=== PATIENT | female | born 1995 | race Caucasian/White ===

== ENCOUNTER 2016-11-04 16:45 | Emergency (ER) | payer OTHER ==
[~2016-11-04] VITALS: Ht 160 cm; Wt 59.0 kg
[~2016-11-04 16:45] MED LIST: BACTRIM DS 8001 TA1 PO; BACTROBAN CREAM15 GM T; CHILDREN'S CLARI5 MG PO; CIPRO250 MG PO; CLINDAMYCIN150 MG PO; DOXYCYCLINE MO100 MG PO; EPIPEN 2-PAK1 MG/ML IJ; FLONASE ALLERG9.9 ML NAS; HYDROCODONE BIT1 T11 PO; MEDROL DOSEPAK4 MG PO; MOTRIN400 MG PO; MOTRIN800 MG PO; MULTIPLE VITAMI1 T22 PO; NITROFURANTOIN100 MG PO; NKHM; OVRAL-21 50 MCG1 TAB PO; PREDNISONE10 MG PO; RECLIPSEN PO; SEPTRA DS 800 M1 TAB PO; TYLENOL W/CODEI1 TA2 PO; ULTRAM50 MG PO; VENTOLIN H0.09 MG/AC INH; ZYRTEC10 MG PO
[2016-11-04 17:11] VITALS: BP 132/90
[2016-11-04] MEDS ORDERED: AMOXICILLIN500 M2 PO (17:12)
[2016-11-04] MEDS ORDERED: IBU800 MG PO (17:12)
[2016-11-04] MEDS ORDERED: LIDOCAINE HCL100 M1 MM (17:17)
[2016-11-04] MEDS ORDERED: Peridex 473 ML473 ML PO (17:17)
[2016-12-03] MEDS ORDERED: CITALOPRAM HYDR10 MG PO (21:48)
[2016-12-03] MEDS ORDERED: ABREVA2 GM TP (22:03)
== END 2016-11-04 17:38 | disposition home or self-care (01) ==
LOC: ED 16:45
DX: K08.89 Other specified disorders of teeth and supporting structures (principal); R03.0 Elevated blood-pressure reading, without diagnosis of hypertension; F17.200 Nicotine dependence, unspecified, uncomplicated; Z88.2 Allergy status to sulfonamides

== ENCOUNTER 2017-02-13 19:50 | Emergency (ER) | payer OTHER ==
[~2017-02-13] VITALS: Ht 157.4 cm; Wt 59.0 kg
[~2017-02-13 19:50] MED LIST changes: +ABREVA2 GM TP; +AMOXICILLIN500 M2 PO; +CITALOPRAM HYDR10 MG PO; +IBU800 MG PO; +LIDOCAINE HCL100 M1 MM; +Peridex 473 ML473 ML PO
[2017-02-13 20:07] VITALS: BP 114/62
[2017-02-13] MEDS ORDERED: NAPROSYN500 MG PO (20:13)
== END 2017-02-13 20:16 | disposition home or self-care (01) ==
LOC: ED 19:50
DX: G56.01 Carpal tunnel syndrome, right upper limb (principal); F17.200 Nicotine dependence, unspecified, uncomplicated; Z79.899 Other long term (current) drug therapy; Z88.2 Allergy status to sulfonamides

== ENCOUNTER 2017-05-08 16:48 | Emergency (ER) | payer OTHER ==
[~2017-05-08] VITALS: Ht 160 cm; Wt 58.1 kg
[~2017-05-08 16:48] MED LIST changes: +NAPROSYN500 MG PO
[2017-05-08 16:57] VITALS: BP 131/68
[2017-05-08 17:37] LABS: BILIRUBIN NEGATIVE (NEGATIVE); BLOOD 3+ (NEGATIVE); CLARITY SL CLOUDY (CLEAR); COLOR YELLOW (YELLOW); GLUCOSE NEGATIVE (NEGATIVE); KETONE NEGATIVE (NEGATIVE); LEUKO ESTERASE NEGATIVE (NEGATIVE); NITRITE NEGATIVE (NEGATIVE); PROTEIN NEGATIVE (NEGATIVE); SPECIFIC GRAVITY >= 1.030 (1.005-1.030)
[2017-05-08 17:44] LABS: BASO # 0.1 10*3/uL (0.0-0.1); BASO % 0.5 % (0.0-1.0); EOS # 0.2 10*3/uL (0.0-0.4); EOS % 2.1 % (1.0-4.0); HEMATOCRIT 43.5 % (37.0-47.0); HEMOGLOBIN 14.1 g/dl (12.0-16.0); LYMPH # 2.4 10*3/uL (1.3-4.4); LYMPH % 24.2 % (27.0-41.0); MEAN CELL VOLUME 95.8 fl (81.0-99.0); MEAN CORPUSCULAR HGB 31.1 pg (27.0-31.0); MEAN CORPUSCULAR HGB CONC 32.4 g/dl (33.0-37.0); MEAN PLATELET VOLUME 10.9 fl (9.6-12.3); MONO # 0.7 10*3/uL (0.1-1.0); MONO % 7.1 % (3.0-9.0); NEUT # 6.5 10*3/uL (2.3-7.9); NEUT % 65.7 % (47.0-73.0); PLATELET COUNT AUTOMATED 258 10*3/uL (130-400); RED BLOOD COUNT 4.54 10*6/uL (4.10-5.10); RED CELL DISTRI WIDTH 12.7 % (0-14.5); WHITE BLOOD COUNT 9.9 10*3/uL (4.8-10.8)
[2017-05-08 17:46] LABS: BACTERIA 1+
[2017-05-08 17:47] LABS: EPITHELIAL CELLS 21-30; URINE REFLEX COMMENT YES (NO)
[2017-05-08 18:00] LABS: ALBUMIN 3.8 gm/dl (3.1-4.5); ALKALINE PHOSPHATASE 80 U/L (45-117); BILIRUBIN, TOTAL 0.3 mg/dl (0.2-1.0); BUN 12 mg/dl (7-24); CARBON DIOXIDE 27 mmol/L (21-32); CHLORIDE 105 mmol/L (98-107); EST GLOM FILT AFRICAN AMERICAN > 60 ml/min; GLUCOSE 82 mg/dL (65-99); MAGNESIUM 2.1 mg/dL (1.5-2.1); POTASSIUM 3.9 mmol/L (3.5-5.1); SGOT/AST 23 IU/L (3-35); SGPT/ALT 22 U/L (12-78); SODIUM 140 mmol/L (136-145)
[2017-05-08 18:02] LABS: C-REACTIVE PROTEIN < 0.29 MG/DL (0-0.3)
[2017-05-08] MEDS ORDERED: PEPCID20 MG PO (18:41)
== END 2017-05-08 18:42 | disposition home or self-care (01) ==
LOC: ED 16:48
PROVIDERS: Emergency Medicine
DX: K29.00 Acute gastritis without bleeding (principal); F17.200 Nicotine dependence, unspecified, uncomplicated; Z88.2 Allergy status to sulfonamides; Z88.8 Allergy status to other drugs, medicaments and biological substances

== ENCOUNTER 2017-06-13 10:52 | Emergency (ER) | payer OTHER ==
[~2017-06-13] VITALS: Ht 160 cm; Wt 56.7 kg
[~2017-06-13 10:52] MED LIST changes: +PEPCID20 MG PO
[2017-06-13 11:05] VITALS: BP 146/88
[2017-06-13] MEDS ORDERED: CLINDAMYCIN HC300 MG PO (11:29)
[2017-06-13] MEDS ORDERED: Peridex 473 ML473 ML PO (11:29)
[2017-06-13] MEDS ORDERED: Motrin,Rufen800 MG PO (11:29)
== END 2017-06-13 11:35 | disposition home or self-care (01) ==
LOC: ED 10:52
DX: K08.89 Other specified disorders of teeth and supporting structures (principal); F17.200 Nicotine dependence, unspecified, uncomplicated; Z88.2 Allergy status to sulfonamides; Z79.899 Other long term (current) drug therapy

== ENCOUNTER 2018-01-29 09:37 | Emergency (ER) | payer OTHER ==
[~2018-01-29] VITALS: Ht 160 cm; Wt 65.8 kg
[2018-01-29 09:37] VITALS: BP 114/76
[~2018-01-29 09:37] MED LIST changes: +CLINDAMYCIN HC300 MG PO; +Motrin,Rufen800 MG PO
== END 2018-01-29 09:59 | disposition home or self-care (01) ==
LOC: ED 09:37
DX: M54.2 Cervicalgia (principal); M25.512 Pain in left shoulder; F17.200 Nicotine dependence, unspecified, uncomplicated; Z79.899 Other long term (current) drug therapy; Z88.2 Allergy status to sulfonamides; V49.88XA Car occupant (driver) (passenger) injured in other specified transport accidents, initial encounter; Y93.89 Activity, other specified; Y92.413 State road as the place of occurrence of the external cause; Y99.9 Unspecified external cause status

== ENCOUNTER 2018-06-25 12:34 | Emergency (ER) | payer SELFPAY ==
[~2018-06-25] VITALS: Ht 160 cm; Wt 64.9 kg
[2018-06-25 12:35] VITALS: BP 117/75
== END 2018-06-25 14:47 | disposition home or self-care (01) ==
LOC: ED 12:34
DX: S93.491A Sprain of other ligament of right ankle, initial encounter (principal); E16.2 Hypoglycemia, unspecified; Z88.2 Allergy status to sulfonamides; Z88.8 Allergy status to other drugs, medicaments and biological substances; W10.8XXA Fall (on) (from) other stairs and steps, initial encounter; Y93.01 Activity, walking, marching and hiking; Y92.89 Other specified places as the place of occurrence of the external cause; Y99.8 Other external cause status

== ENCOUNTER 2018-07-06 07:21 | Emergency (ER) | payer SELFPAY ==
[~2018-07-06] VITALS: Ht 160 cm; Wt 63.5 kg
[2018-07-06 07:22] VITALS: BP 128/68
[2018-07-06 07:46] LABS: HEMATOCRIT 43.9 % (37.0-47.0); HEMOGLOBIN 14.6 g/dl (12.0-16.0); MEAN CORPUSCULAR HGB 31.6 pg (27.0-31.0); MEAN CORPUSCULAR HGB CONC 33.3 g/dl (33.0-37.0); PLATELET COUNT AUTOMATED 185 10*3/uL (130-400); RED BLOOD COUNT 4.62 10*6/uL (4.10-5.10); RED CELL DISTRI WIDTH 12.6 % (0-14.5); WHITE BLOOD COUNT 19.6 10*3/uL (4.8-10.8)
[2018-07-06 07:51] LABS: BILIRUBIN 1+ (NEGATIVE); BLOOD 3+ (NEGATIVE); CLARITY SL CLOUDY (CLEAR); COLOR YELLOW (YELLOW); GLUCOSE NEGATIVE (NEGATIVE); KETONE NEGATIVE (NEGATIVE); LEUKO ESTERASE NEGATIVE (NEGATIVE); NITRITE NEGATIVE (NEGATIVE); PH 7.5 (5.0-9.0)
[2018-07-06 07:58] LABS: BACTERIA 1+; EPITHELIAL CELLS 15-20; RBC 16-20 rbc/hpf (0-2)
[2018-07-06 08:02] LABS: ALBUMIN 3.6 gm/dl (3.1-4.5); ALKALINE PHOSPHATASE 222 U/L (45-117); BUN 7 mg/dl (7-24); CHLORIDE 105 mmol/L (98-107); CREATININE 0.69 mg/dL (0.55-1.02); LIPASE 68 U/L (73-393); POTASSIUM 3.8 mmol/L (3.5-5.1); SGOT/AST 48 IU/L (3-35); SGPT/ALT 50 U/L (12-78); SODIUM 137 mmol/L (136-145); TOTAL PROTEIN 7.4 gm/dL (6.4-8.2)
[2018-07-06 08:34] LABS: ATYPICAL LYMPHS 9 % (0-0); BASOPHILS 1 % (0-1); PLATELET SUFFICIENCY NORMAL (NORMAL); TOTAL CELLS COUNTED 100 #CELLS
[2018-07-06 09:02] LABS: URINE AMPHETAMINES < 1000 (1000ng/ml); URINE BARBITURATES < 200 (200ng/ml); URINE BENZODIAZEPINES < 200 (200ng/ml); URINE CANNABINOIDS (THC) > 50 (50ng/ml); URINE COCAINE < 300 (300ng/ml); URINE METHADONE < 300 (300ng/ml); URINE OPIATES < 300 (300ng/ml)
[2018-07-06 09:06] LABS: URINE PHENCYCLIDINE < 25 (25ng/ml)
== END 2018-07-06 10:32 | disposition home or self-care (01) ==
LOC: ED 07:21
PROVIDERS: Emergency Medicine
DX: N83.202 Unspecified ovarian cyst, left side (principal); Z88.2 Allergy status to sulfonamides

== ENCOUNTER 2018-08-28 13:15 | Emergency (ER) | payer SELFPAY ==
[~2018-08-28] VITALS: Ht 160 cm; Wt 63.5 kg
[2018-08-28 13:17] VITALS: BP 114/75
[2018-08-28] MEDS ORDERED: PENICILLIN-VK500 MG PO (13:41)
[2018-08-28] MEDS ORDERED: TYLENOL325 M1 PO (13:41)
[2018-08-28] MEDS ORDERED: NAPROSYN500 MG PO (13:41)
== END 2018-08-28 14:00 | disposition home or self-care (01) ==
LOC: ED 13:15
DX: K02.9 Dental caries, unspecified (principal); Z88.2 Allergy status to sulfonamides

== ENCOUNTER 2018-12-07 21:34 | Emergency (ER) | payer SELFPAY ==
[~2018-12-07] VITALS: Ht 160 cm; Wt 63.5 kg
[~2018-12-07 21:34] MED LIST changes: +PENICILLIN-VK500 MG PO; +TYLENOL325 M1 PO
[2018-12-07 21:35] VITALS: BP 139/85
[2019-01-29] MEDS ORDERED: IBUPROFEN600 MG PO (14:51)
[2019-01-29] MEDS ORDERED: AMOXICILLIN500 M2 PO (14:51)
[2019-02-07] MEDS ORDERED: SUDOGEST60 MG PO (18:13)
[2019-02-07] MEDS ORDERED: MEDROL DOSEPAK4 MG PO (18:13)
== END 2018-12-07 22:18 ==
LOC: ED 21:34
DX: T23.002A Burn of unspecified degree of left hand, unspecified site, initial encounter (principal); T22.052A Burn of unspecified degree of left shoulder, initial encounter; T21.01XA Burn of unspecified degree of chest wall, initial encounter; T31.0 Burns involving less than 10% of body surface; Z88.2 Allergy status to sulfonamides; X19.XXXA Contact with other heat and hot substances, initial encounter; Y93.89 Activity, other specified; Y92.89 Other specified places as the place of occurrence of the external cause; Y99.8 Other external cause status

== ENCOUNTER 2019-05-31 15:36 | Emergency (ER) | payer SELFPAY ==
[~2019-05-31] VITALS: Ht 160 cm; Wt 65.8 kg
[~2019-05-31 15:36] MED LIST changes: +IBUPROFEN600 MG PO; +SUDOGEST60 MG PO
[2019-05-31 15:37] VITALS: BP 109/83
[2019-05-31 16:08] LABS: BILIRUBIN NEGATIVE (NEGATIVE); BLOOD 3+ (NEGATIVE); CLARITY CLEAR (CLEAR); COLOR YELLOW (YELLOW); GLUCOSE NEGATIVE (NEGATIVE); KETONE NEGATIVE (NEGATIVE); LEUKO ESTERASE NEGATIVE (NEGATIVE); NITRITE NEGATIVE (NEGATIVE); PH 7.5 (5.0-9.0); SPECIFIC GRAVITY <= 1.005 (1.005-1.030); UROBILINOGEN 0.2 E.U./dl (0.2-1.0)
[2019-05-31 16:12] LABS: BASO % 0.5 % (0.0-1.0); EOS # 0.2 10*3/uL (0.0-0.4); HEMATOCRIT 41.7 % (37.0-47.0); HEMOGLOBIN 13.7 g/dl (12.0-16.0); LYMPH # 2.4 10*3/uL (1.3-4.4); LYMPH % 28.6 % (27.0-41.0); MEAN CELL VOLUME 95.9 fl (81.0-99.0); MEAN CORPUSCULAR HGB 31.5 pg (27.0-31.0); MEAN CORPUSCULAR HGB CONC 32.9 g/dl (33.0-37.0); MEAN PLATELET VOLUME 10.7 fl (9.6-12.3); MONO # 0.7 10*3/uL (0.1-1.0); MONO % 8.5 % (3.0-9.0); PLATELET COUNT AUTOMATED 242 10*3/uL (130-400); RED BLOOD COUNT 4.35 10*6/uL (4.10-5.10); RED CELL DISTRI WIDTH 11.9 % (0-14.5); WHITE BLOOD COUNT 8.4 10*3/uL (4.8-10.8)
[2019-05-31 16:34] LABS: ALBUMIN 3.9 gm/dl (3.1-4.5); ALKALINE PHOSPHATASE 84 U/L (45-117); BUN 5 mg/dl (7-24); CHLORIDE 107 mmol/L (98-107); CREATININE 0.71 mg/dL (0.55-1.02); LIPASE 115 U/L (73-393); POTASSIUM 3.8 mmol/L (3.5-5.1); SGOT/AST 10 IU/L (3-35); SGPT/ALT 21 U/L (12-78); SODIUM 140 mmol/L (136-145); TOTAL PROTEIN 6.9 gm/dL (6.4-8.2)
[2019-05-31 16:37] LABS: B-hCG (QUALITATIVE) NEGATIVE (NEGATIVE)
[2019-05-31] MEDS ORDERED: ZANTAC 150150 MG PO (17:45)
== END 2019-05-31 18:15 | disposition home or self-care (01) ==
LOC: ED 15:36
PROVIDERS: Physician Assistant
DX: R11.2 Nausea with vomiting, unspecified (principal); R10.13 Epigastric pain; R10.12 Left upper quadrant pain; Z88.2 Allergy status to sulfonamides; Z91.048 Other nonmedicinal substance allergy status; Z79.2 Long term (current) use of antibiotics; Z79.899 Other long term (current) drug therapy

== ENCOUNTER 2019-08-21 16:43 | Emergency (ER) | payer SELFPAY ==
[~2019-08-21 16:43] MED LIST changes: +ZANTAC 150150 MG PO
[2019-08-21 16:45] VITALS: BP 123/91
[2019-08-21] MEDS ORDERED: PENICILLIN-VK500 MG PO (16:53)
[2019-08-21] MEDS ORDERED: NAPROSYN500 MG PO (16:53)
[2019-08-21] MEDS ORDERED: TYLENOL325 M1 PO (16:53)
== END 2019-08-21 17:07 | disposition home or self-care (01) ==
LOC: ED 16:43
DX: K04.7 Periapical abscess without sinus (principal); H92.02 Otalgia, left ear; Z88.2 Allergy status to sulfonamides; Z91.048 Other nonmedicinal substance allergy status; Z79.899 Other long term (current) drug therapy

== ENCOUNTER 2019-08-24 08:37 | Emergency (ER) | payer SELFPAY ==
[~2019-08-24] VITALS: Ht 160 cm; Wt 73.5 kg
[2019-08-24 08:40] VITALS: BP 120/69
[2019-08-24] MEDS ORDERED: CLINDAMYCIN150 MG PO (09:10)
== END 2019-08-24 09:19 | disposition home or self-care (01) ==
LOC: ED 08:37
DX: K04.7 Periapical abscess without sinus (principal); R68.2 Dry mouth, unspecified; Z88.2 Allergy status to sulfonamides; Z91.048 Other nonmedicinal substance allergy status; Z79.2 Long term (current) use of antibiotics; Z79.899 Other long term (current) drug therapy

== ENCOUNTER 2020-03-11 12:03 | Emergency (ER) | payer SELFPAY ==
[~2020-03-11] VITALS: Wt 79.4 kg
[2020-03-11 13:03] VITALS: BP 122/60
[2020-03-11] MEDS ORDERED: AMOXICILLIN500 M3 PO (15:17)
== END 2020-03-11 15:01 | disposition home or self-care (01) ==
LOC: ED 12:03
DX: J02.9 Acute pharyngitis, unspecified (principal); Z88.2 Allergy status to sulfonamides; Z79.899 Other long term (current) drug therapy; Z79.2 Long term (current) use of antibiotics; Z86.14 Personal history of Methicillin resistant Staphylococcus aureus infection

== ENCOUNTER 2020-06-01 15:12 | Emergency (ER) | payer SELFPAY ==
[~2020-06-01] VITALS: Ht 160 cm; Wt 77.1 kg
[~2020-06-01 15:12] MED LIST changes: +AMOXICILLIN500 M3 PO
[2020-06-01 15:32] VITALS: BP 118/75
[2020-06-01 16:26] LABS: BASO # 0.1 10*3/uL (0.0-0.1); BASO % 0.5 % (0.0-1.0); EOS # 0.1 10*3/uL (0.0-0.4); EOS % 1.2 % (1.0-4.0); LYMPH # 2.7 10*3/uL (1.3-4.4); LYMPH % 24.4 % (27.0-41.0); MEAN CELL VOLUME 93.2 fl (81.0-99.0); MEAN CORPUSCULAR HGB 30.5 pg (27.0-31.0); MEAN CORPUSCULAR HGB CONC 32.7 g/dl (33.0-37.0); MEAN PLATELET VOLUME 10.8 fl (9.6-12.3); MONO # 0.8 10*3/uL (0.1-1.0); MONO % 6.9 % (3.0-9.0); NEUT # 7.4 10*3/uL (2.3-7.9); NEUT % 66.6 % (47.0-73.0); PLATELET COUNT AUTOMATED 270 10*3/uL (130-400); RED BLOOD COUNT 4.72 10*6/uL (4.10-5.10); RED CELL DISTRI WIDTH 11.9 % (0-14.5); WHITE BLOOD COUNT 11.1 10*3/uL (4.8-10.8)
[2020-06-01 16:41] LABS: ALKALINE PHOSPHATASE 106 U/L (45-117); BUN 6 mg/dl (7-24); CHLORIDE 106 mmol/L (98-107); CREATININE 0.67 mg/dL (0.55-1.02); POTASSIUM 3.8 mmol/L (3.5-5.1); SGOT/AST 37 IU/L (3-35); SGPT/ALT 58 U/L (12-78); SODIUM 139 mmol/L (136-145); TOTAL PROTEIN 7.4 gm/dL (6.4-8.2)
[2020-06-01] MEDS ORDERED: VIBRAMYCIN100 MG PO (18:11)
== END 2020-06-01 18:02 | disposition home or self-care (01) ==
LOC: ED 15:12
PROVIDERS: Nurse Practitioner Family
DX: L02.211 Cutaneous abscess of abdominal wall (principal); F17.200 Nicotine dependence, unspecified, uncomplicated; Z88.2 Allergy status to sulfonamides

== ENCOUNTER 2021-02-03 10:44 | Emergency (ER) | payer SELFPAY ==
[~2021-02-03] VITALS: Ht 160 cm; Wt 74.8 kg
[~2021-02-03 10:44] MED LIST changes: +VIBRAMYCIN100 MG PO
[2021-02-03 11:30] LABS: BILIRUBIN Negative (Negative); BLOOD Negative (Negative); CLARITY Turbid (Clear); COLOR Dark Yellow (Yellow); GLUCOSE Negative (Negative); KETONE Trace (Negative); NITRITE Negative (Negative); PH 6.5 (4.5-8.0); SPECIFIC GRAVITY >= 1.030 (1.001-1.030)
[2021-02-03 11:48] LABS: BACTERIA 3+; EPITHELIAL CELLS 31-40; LEUKO ESTERASE Trace (Negative)
[2021-02-03 11:50] LABS: BASO % 0.5 % (0.0-1.0); EOS # 0.1 10*3/uL (0.0-0.4); EOS % 1.5 % (1.0-4.0); HEMATOCRIT 44.6 % (37.0-47.0); LYMPH # 2.2 10*3/uL (1.3-4.4); LYMPH % 24.9 % (27.0-41.0); MEAN CELL VOLUME 93.7 fl (81.0-99.0); MEAN CORPUSCULAR HGB 30.9 pg (27.0-31.0); MEAN PLATELET VOLUME 10.8 fl (9.6-12.3); MONO # 0.6 10*3/uL (0.1-1.0); MONO % 7.2 % (3.0-9.0); NEUT # 5.7 10*3/uL (2.3-7.9); NEUT % 65.6 % (47.0-73.0); PLATELET COUNT AUTOMATED 234 10*3/uL (130-400); RED BLOOD COUNT 4.76 10*6/uL (4.10-5.10); RED CELL DISTRI WIDTH 11.7 % (0-14.5); WHITE BLOOD COUNT 8.7 10*3/uL (4.8-10.8)
[2021-02-03 12:05] LABS: ALBUMIN 4.1 gm/dl (3.1-4.5); ALKALINE PHOSPHATASE 117 U/L (45-117); BUN 9 mg/dl (7-24); CHLORIDE 108 mmol/L (98-107); CREATININE 0.76 mg/dL (0.55-1.02); LIPASE 71 U/L (73-393); POTASSIUM 3.7 mmol/L (3.5-5.1); SGOT/AST 20 IU/L (3-35); SGPT/ALT 61 U/L (12-78); SODIUM 140 mmol/L (136-145); TOTAL PROTEIN 7.1 gm/dL (6.4-8.2)
[2021-02-03 13:21] VITALS: BP 97/54
[2021-02-03] MEDS ORDERED: NAPROSYN500 MG PO (13:33)
[2021-02-03] MEDS ORDERED: CLINDAMYCIN HC300 MG PO (13:33)
[2021-02-06] MEDS ORDERED: DOXYCYCLINE100 MG PO (12:26)
== END 2021-02-03 13:47 | disposition home or self-care (01) ==
LOC: ED 10:44
PROVIDERS: Physician Assistant
DX: L03.311 Cellulitis of abdominal wall (principal); Z88.2 Allergy status to sulfonamides; Z79.899 Other long term (current) drug therapy

== ENCOUNTER 2021-03-20 14:56 | Emergency (ER) | payer SELFPAY ==
[~2021-03-20] VITALS: Wt 72.6 kg
[~2021-03-20 14:56] MED LIST changes: +DOXYCYCLINE100 MG PO
[2021-03-20 17:02] VITALS: BP 110/64
== END 2021-03-20 17:12 | disposition home or self-care (01) ==
LOC: ED 14:56
DX: S93.401A Sprain of unspecified ligament of right ankle, initial encounter (principal); Z88.2 Allergy status to sulfonamides; Z79.2 Long term (current) use of antibiotics; Z79.899 Other long term (current) drug therapy; Z86.14 Personal history of Methicillin resistant Staphylococcus aureus infection; W10.8XXA Fall (on) (from) other stairs and steps, initial encounter; Y93.89 Activity, other specified; Y92.89 Other specified places as the place of occurrence of the external cause; Y99.8 Other external cause status

== ENCOUNTER 2022-05-21 09:10 | Emergency (ER) | payer OTHER ==
[~2022-05-21] VITALS: Ht 160 cm; Wt 77.1 kg
[2022-05-21 09:19] VITALS: BP 123/74
[2022-05-21] MEDS ORDERED: HYDROCODONE-AC1 EAC1 PO (11:08)
== END 2022-05-21 12:46 | disposition home or self-care (01) ==
LOC: ED 09:10
DX: S93.402A Sprain of unspecified ligament of left ankle, initial encounter (principal); S99.922A Unspecified injury of left foot, initial encounter; Z88.2 Allergy status to sulfonamides; Z90.89 Acquired absence of other organs; W10.8XXA Fall (on) (from) other stairs and steps, initial encounter; Y93.89 Activity, other specified; Y92.89 Other specified places as the place of occurrence of the external cause; Y99.8 Other external cause status

== ENCOUNTER 2023-01-31 07:28 | Emergency (ER) | payer SELFPAY ==
[~2023-01-31] VITALS: Ht 157.4 cm; Wt 81.6 kg
[~2023-01-31 07:28] MED LIST changes: +HYDROCODONE-AC1 EAC1 PO
[2023-01-31 07:34] VITALS: BP 110/93
[2023-01-31] MEDS ORDERED: PREDNISONE50 MG PO (08:05)
== END 2023-01-31 08:07 | disposition home or self-care (01) ==
LOC: ED 07:28
DX: M54.32 Sciatica, left side (principal); Z88.2 Allergy status to sulfonamides; Z90.89 Acquired absence of other organs

== ENCOUNTER 2023-10-08 18:59 | Emergency (ER) | payer SELFPAY ==
[~2023-10-08] VITALS: Ht 160 cm; Wt 79.4 kg
[~2023-10-08 18:59] MED LIST changes: +PREDNISONE50 MG PO
[2023-10-08] MEDS ORDERED: DAYTIME COLD-F1 EAC1 PO (19:20)
[2023-10-08 19:23] VITALS: BP 129/91
[2023-10-08 20:28] LABS: BASO # 0.1 10*3/uL (0.0-0.1); BASO % 0.4 % (0.0-1.0); EOS # 0.1 10*3/uL (0.0-0.4); EOS % 0.4 % (1.0-4.0); HEMATOCRIT 48.8 % (37.0-47.0); LYMPH # 0.5 10*3/uL (1.3-4.4); LYMPH % 4.8 % (27.0-41.0); MEAN CORPUSCULAR HGB 32.3 pg (27.0-31.0); MEAN PLATELET VOLUME 10.6 fl (9.6-12.3); MONO # 0.7 10*3/uL (0.1-1.0); MONO % 6.6 % (3.0-9.0); NEUT # 9.7 10*3/uL (2.3-7.9); NEUT % 87.4 % (47.0-73.0); PLATELET COUNT AUTOMATED 275 10*3/uL (130-400); RED BLOOD COUNT 4.98 10*6/uL (4.10-5.10); RED CELL DISTRI WIDTH 12.4 % (0-14.5); WHITE BLOOD COUNT 11.2 10*3/uL (4.8-10.8)
[2023-10-08 20:49] LABS: ALKALINE PHOSPHATASE 121 U/L (46-116); CHLORIDE 106 mmol/L (98-107); POTASSIUM 3.7 mmol/L (3.4-5.1); SGPT/ALT 35 U/L (5-49); TOTAL PROTEIN 7.1 gm/dL (6.0-8.0)
[2023-10-08 20:59] LABS: BUN < 5 mg/dl (9-23)
[2023-10-08] MEDS ORDERED: ONDANSETRON4 MG SL (21:08)
== END 2023-10-08 21:10 | disposition home or self-care (01) ==
LOC: ED 18:59
PROVIDERS: Internal Medicine
DX: B34.9 Viral infection, unspecified (principal); R11.10 Vomiting, unspecified; Z88.2 Allergy status to sulfonamides; Z90.89 Acquired absence of other organs; Z20.822 Contact with and (suspected) exposure to COVID-19